=== PATIENT | female | born 1960 | race Caucasian/White ===

== ENCOUNTER 2021-05-31 18:17 | Emergency (ER) | payer OTHER ==
[2021-05-31 19:45] LABS: Absolute Lymphocytes (CBC) 1.5 K/uL (0.7-4.9); Basophils % 0.5 % (0-1.3); Hematocrit 41.6 % (36.0-45.0); Lymphocytes % 22.6 % (15.3-44.8); MPV 8.6 fL (7.6-11.3); RBC Red Blood Cell Count 4.26 M/uL (3.86-4.86)
[2021-05-31 19:53] LABS: ALT/SGPT 50 U/L (12-78); AST/SGOT 50 U/L (15-37); Albumin 3.7 g/dL (3.4-5.0); Alkaline Phosphatase 99 U/L (45-117); BUN Blood Urea Nitrogen 5 mg/dL (7-18); Bicarbonate 24 mmol/L (21-32); Bilirubin Direct 0.2 mg/dL (0-0.2); Bilirubin Total 0.7 mg/dL (0.2-1.0); Glucose Level 106 mg/dL (74-106); Lipase 189 U/L (73-393); Potassium 3.2 mmol/L (3.5-5.1); Protein, Total 7.8 g/dL (6.4-8.2); Sodium Level 136 mmol/L (136-145)
--- NOTE | 2021-05-31 20:09 | EDPHYS ---
Physician Documentation [facility] Name: Roseanne Ruby Age: 61 yrs Sex: Female : 1960 Arrival Date: 05/31/2021 Time: 18:18 Bed 18 Private MD: ED Physician Kemal Penny HPI: 05/31 20:03 This 61 yrs old Female presents to ER via EMS with complaints of abdominal jr8 pain. 20:03 The patient presents with abdominal pain that is diffuse. Onset: The symptoms/episode jr8 began/occurred acutely, today. The symptoms do not radiate. Associated signs and symptoms: Pertinent positives: nausea and vomiting. The symptoms are described as crampy. Modifying factors: The symptoms are alleviated by nothing, the symptoms are aggravated by nothing. Severity of pain: At its worst the pain was mild in the emergency department the pain is unchanged. The patient has experienced a previous episode. The patient has not recently seen a physician. This is a 61-year-old female patient that arrived emergency room with complaints of abdominal pain and nausea vomiting. Stated that she was at [facility] a week or so ago with similar complaints. Stated that she feels that someone had poisoned her drink at that time and then went into talking about food poisoning at [employer]. Patient stated that she ate [employer] again and feels the same way.. Historical: - Allergies: 18:33 No Known Allergies; ch5 - Home Meds: 18:33 None [Active]; ch5 - PMHx: 18:33 None; ch5 - PSHx: 18:33 None; ch5 - Immunization history:: Adult Immunizations unknown, Client reports receiving the 2nd dose of the Covid vaccine. - Social history:: Smoking status: Patient reports the use of cigarette tobacco products, smokes one-half pack cigarettes per day, Patient uses alcohol, occasionally. Patient/guardian denies using street drugs. ROS: 20:03 Eyes: Negative for injury, pain, redness, and discharge, ENT: Negative for injury, jr8 pain, and discharge, Neck: Negative for injury, pain, and swelling, Cardiovascular: Negative for chest pain, palpitations, and edema, Respiratory: Negative for shortness of breath, cough, wheezing, and pleuritic chest pain, Back: Negative for injury and pain, MS/Extremity: Negative for injury and deformity, Skin: Negative for injury, rash, and discoloration, Neuro: Negative for headache, weakness, numbness, tingling, and seizure. 20:03 Abdomen/GI: Positive for abdominal pain, nausea and vomiting, Negative for diarrhea. Exam: 20:03 Constitutional: This is a well developed, well nourished patient who is awake, alert, jr8 and in no acute distress. Eyes: Pupils equal round and reactive to light, extra-ocular motions intact. Lids and lashes normal. Conjunctiva and sclera are non-icteric and not injected. Cornea within normal limits. Periorbital areas with no swelling, redness, or edema. ENT: Nares patent. No nasal discharge, no septal abnormalities noted. Tympanic membranes are normal and external auditory canals are clear. Oropharynx with no redness, swelling, or masses, exudates, or evidence of obstruction, uvula midline. Mucous membranes moist. Neck: Trachea midline, no thyromegaly or masses palpated, and no cervical lymphadenopathy. Supple, full range of motion without nuchal rigidity, or vertebral point tenderness. No Meningismus. Cardiovascular: Regular rate and rhythm with a normal S1 and S2. No gallops, murmurs, or rubs. Normal PMI, no JVD. No pulse deficits. Respiratory: Lungs have equal breath sounds bilaterally, clear to auscultation and percussion. No rales, rhonchi or wheezes noted. No increased work of breathing, no retractions or nasal flaring. Abdomen/GI: Soft, non-tender, with normal bowel sounds. No distension or tympany. No guarding or rebound. No evidence of tenderness throughout. Back: No spinal tenderness. No costovertebral tenderness. Full range of motion. Skin: Warm, dry with normal turgor. Normal color with no rashes, no lesions, and no evidence of cellulitis. MS/ Extremity: Pulses equal, no cyanosis. Neurovascular intact. Full, normal range of motion. Neuro: Awake and alert, GCS 15, oriented to person, place, time, and situation. Cranial nerves II-XII grossly intact. Motor strength 5/5 in all extremities. Sensory grossly intact. Vital Signs: 18:30 BP 146 / 86; Pulse 67; Resp 22; Temp 97.8(TE); Pulse Ox 100% ; Weight 62.14 kg; Height ch5 5 ft. 7 in. (170.18 cm); Pain 9/10; 20:28 BP 113 / 77 LA Sitting (auto/reg); Pulse 64; Resp 15 S; Temp 98.9(O); Pulse Ox 96% on sj1 R/A; Pain 0/10; 18:30 Body Mass Index 21.46 (62.14 kg, 170.18 cm) [facility] MDM: 18:28 Patient medically screened. [facility] 20:08 Data reviewed: vital signs, nurses notes, lab test result(s), and as a result, I will jr8 discharge patient. Data interpreted: Pulse oximetry: on room air is 100 %. Interpretation: normal. Counseling: I had a detailed discussion with the patient and/or guardian regarding: the historical points, exam findings, and any diagnostic results supporting the discharge/admit diagnosis, lab results, the need for outpatient follow up, a family practitioner, to return to the emergency department if symptoms worsen or persist or if there are any questions or concerns that arise at home. Special discussion: Based on the patient's Hx, exam, and Dx evaluation, there is no indication for emergent surgery or inpatient Tx. It is understood by the patient/guardian that if the Sx's persist or worsen they need to return immediately for re-evaluation. 05/31 18:46 Order name: Basic Metabolic Panel; Complete Time: 20:05 8 05/31 18:46 Order name: CBC with Diff; Complete Time: 20:05 8 05/31 18:46 Order name: Hepatic Function; Complete Time: 20:05 [facility] 05/31 18:46 Order name: Lipase; Complete Time: 20:05 8 05/31 18:46 Order name: IV Saline Lock; Complete Time: 19:52 8 05/31 18:46 Order name: Labs collected and sent; Complete Time: 19:52 8 Administered Medications: 20:28 Drug: Potassium Chloride 40 mEq Route: PO; sj1 20:28 Follow up: Response: Medication administered at discharge. 1 Point of Care Testing: Ranges: Critical Glucose Levels:Adult <50 mg/dl or >400 mg/dl <40 mg/dl or >180 mg/dl Disposition: 23:48 Co-signature as Attending Physician, Kemal Penny MD I agree with the assessment and kdr plan of care. Disposition Summary: 05/31/21 20:09 Discharge Ordered Location: Home jr8 Problem: new jr8 Symptoms: have improved jr8 Condition: Stable jr8 Diagnosis - Abdominal pain, Generalized jr8 Followup: jr8 - With: Private Physician - When: 2 - 3 days - Reason: Recheck today's complaints, Continuance of care, Re-evaluation by your physician Discharge Instructions: - Discharge Summary Sheet jr8 - Abdominal Pain, Adult jr8 Forms: - Medication Reconciliation Form jr8 - Thank You Letter jr8 - Antibiotic Education jr8 - Prescription Opioid Use jr8 Signatures: Dispatcher [employer] EDMS Kemal Penny MD MD kdr Roszak, Josh, PA PA jr8 Yamil Lyon RN RN ch5 Amita Wolf RN RN sj1
--- NOTE | 2021-05-31 20:09 | ER ---
Nurse's Notes [facility] Name: Roseanne Ruby Age: 61 yrs Sex: Female : 1960 Arrival Date: 05/31/2021 Time: 18:18 Bed 18 Private MD: Diagnosis: Abdominal pain, Generalized Presentation: 05/31 18:30 Chief complaint: EMS states: Multiple complaints. main complaint is ABD pain. Was seen ch5 in [place] ED twice last week. Complaint of seen "[place]" . Coronavirus screen: Vaccine status: Patient reports receiving the 2nd dose of the covid vaccine. Client denies travel out of the [place] in the last 14 days. Ebola Screen: Patient negative for fever greater than or equal to 101.5 degrees Fahrenheit, and additional compatible Ebola Virus Disease symptoms Patient denies exposure to infectious person. Patient denies travel to an Ebola-affected area in the 21 days before illness onset. Initial Sepsis Screen: Does the patient meet any 2 criteria? No. Patient's initial sepsis screen is negative. Does the patient have a suspected source of infection? No. Patient's initial sepsis screen is negative. Risk Assessment: Do you want to hurt yourself or someone else? Patient reports no desire to harm self or others. Onset of symptoms is unknown. 18:30 Method Of Arrival: EMS: [place] [id number] 18:30 Acuity: FLORY 3 5 Triage Assessment: 18:33 General: Appears unkempt, Behavior is Pt unable to stay on one conversation. . Pain: 5 Complains of pain in abdomen Pain currently is 9 out of 10 on a pain scale. Historical: - Allergies: 18:33 No Known Allergies; 5 - Home Meds: 18:33 None [Active]; ch5 - PMHx: 18:33 None; ch5 - PSHx: 18:33 None; 5 - Immunization history:: Adult Immunizations unknown, Client reports receiving the 2nd dose of the Covid vaccine. - Social history:: Smoking status: Patient reports the use of cigarette tobacco products, smokes one-half pack cigarettes per day, Patient uses alcohol, occasionally. Patient/guardian denies using street drugs. Screenin:36 Abuse screen: Denies threats or abuse. Denies injuries from another. Nutritional 5 screening: No deficits noted. Tuberculosis screening: No symptoms or risk factors identified. Fall Risk None identified. Assessment: 18:36 Reassessment: No changes from previously documented assessment. General: Behavior is ch5 cooperative. GI: Reports lower abdominal pain, upper abdominal pain. 20:30 Reassessment: pt did not express any SI/HI thoughts. C/o Abd pain. General: Appears in sj1 no apparent distress. unkempt. Pain: Denies pain. Neuro: No deficits noted. Cardiovascular: No deficits noted. Respiratory: No deficits noted. : No deficits noted. EENT: No deficits noted. Derm: No deficits noted. Musculoskeletal: No deficits noted. Psych: 20:29 [place] Suicide Severity Screening: In the past month, have you wished you were sj1 or wished you could go to sleep and not wake up? Patient responds "No." "In the past month, have you actually had any thoughts of killing yourself?" Patient responds "no." "In your lifetime, have you ever done anything, started to do anything, or prepared to do anything to end your life?" Patient responds "no.". Subjective:. Objective: Patient is cooperative, Speech is rambling, Affect is appropriate. Interventions: blood collected. Safety Checks: Vital Signs: 18:30 BP 146 / 86; Pulse 67; Resp 22; Temp 97.8(TE); Pulse Ox 100% ; Weight 62.14 kg; Height ch5 5 ft. 7 in. (170.18 cm); Pain 9/10; 20:28 BP 113 / 77 LA Sitting (auto/reg); Pulse 64; Resp 15 S; Temp 98.9(O); Pulse Ox 96% on sj1 R/A; Pain 0/10; 18:30 Body Mass Index 21.46 (62.14 kg, 170.18 cm) [facility] ED Course: 18:18 Patient arrived in ED. 5 18:27 Bunny Trotter PA is PHCP. jr8 18:27 Kemal Penny MD is Attending Physician. jr8 18:29 Yamil Lyon RN is Primary Nurse. 5 18:33 Triage completed. 5 18:33 Arm band placed on right wrist. 5 18:36 Bed in low position. Call light in reach. Side rails up X2. 5 18:36 No provider procedures requiring assistance completed. ch5 20:28 IV discontinued, intact, bleeding controlled, No redness/swelling at site. sj1 Administered Medications: 20:28 Drug: Potassium Chloride 40 mEq Route: PO; sj1 20:28 Follow up: Response: Medication administered at discharge. 1 Point of Care Testing: Ranges: Outcome: 20:09 Discharge ordered by . louis 20:28 Discharged to home ambulatory. sj1 20:28 Condition: stable 20:28 Discharge instructions given to patient, Instructed on discharge instructions, follow up and referral plans. Demonstrated understanding of instructions, follow-up care. 20:31 Patient left the ED. 1 Signatures: Bunny Trotter PA PA jr8 Yamil Lyon RN RN 5 Amita Wolf RN RN 1
[2021-05-31 20:36] VITALS: BP 113/77; TEMP 98.9; O2SAT 96
[2021-05-31] MEDS ORDERED: POTASSIUM CL SA 10 MEQ TAB PO ONE (20:44)
== END 2021-05-31 20:31 | disposition home or self-care (01) ==
LOC: ER 18:17
DX: R10.84 Generalized abdominal pain (principal); F17.210 Nicotine dependence, cigarettes, uncomplicated
CPT/HCPCS: 36415; 80048; 80076; 83690; 85025; 99283

== ENCOUNTER 2021-06-03 15:47 | Emergency (ER) | payer OTHER ==
--- NOTE | 2021-06-03 16:37 | RAD REPORT ---
EXAM DESCRIPTION: CT - Head Brain Wo Cont - 06/03/2021 4:24 pm CLINICAL HISTORY: AMS COMPARISON: No comparisons TECHNIQUE: Axial 5 mm thick images of the head were obtained without IV contrast. All CT scans are performed using dose optimization technique as appropriate and may include automated exposure control or mA/KV adjustment according to patient size. FINDINGS: No intracranial hemorrhage, mass, edema or shift of mid-line structures. No acute infarcti on changes seen. No cortical edema or sulcal effacement. Atrophy changes are minimal. No significant chronic ischemic changes seen. Arterial tree calcifications are present. Ventricles are normal. Mastoid air cells are clear. Small air-fluid level present in the right maxillary sinus. Minimal muco baltazar thickening seen on the left maxillary sinus. Partially collapsed, partially calcified nonfunction ing right lobe noted. No acute bony findings. IMPRESSION: Negative non-contrast CT head examination for acute finding.
[2021-06-03 16:52] LABS: Absolute Lymphocytes (CBC) 1.9 K/uL (0.7-4.9); Basophils % 0.5 % (0-1.3); Hematocrit 43.5 % (36.0-45.0); Lymphocytes % 27.4 % (15.3-44.8); MPV 8.6 fL (7.6-11.3); RBC Red Blood Cell Count 4.41 M/uL (3.86-4.86)
[2021-06-03 16:53] LABS: Protime INR 0.96
[2021-06-03 17:11] LABS: ALT/SGPT 46 U/L (12-78); AST/SGOT 65 U/L (15-37); Albumin 3.9 g/dL (3.4-5.0); Alkaline Phosphatase 127 U/L (45-117); BUN Blood Urea Nitrogen 11 mg/dL (7-18); Bicarbonate 27 mmol/L (21-32); Bilirubin Direct 0.2 mg/dL (0-0.2); Bilirubin Total 0.8 mg/dL (0.2-1.0); Glucose Level 104 mg/dL (74-106); NT PRO-BNP 370 pg/mL (<125); Potassium 3.6 mmol/L (3.5-5.1); Protein, Total 8.1 g/dL (6.4-8.2); Sodium Level 141 mmol/L (136-145); Troponin (Emerg Dept Use Only) < 0.02 ng/mL (0.0-0.045)
--- NOTE | 2021-06-03 17:25 | RAD REPORT ---
EXAM DESCRIPTION: RAD - Chest Single View - 06/03/2021 4:52 pm CLINICAL HISTORY: AMS COMPARISON: None TECHNIQUE: AP portable chest image was obtained 06/03/2021 4:52 pm . FINDINGS: No focal mass or consolidation. Interstitial markings are prominent partly due to techniqu e. Chronic interstitial lung disease is suspected. A mild interstitial edema or infiltrate cannot be excluded. Heart and vasculature are normal. No measurable pleural effusion and no pneumothorax. No ac aicha bony abnormality seen. No acute aortic findings suspected. IMPRESSION: No acute cardiopulmonary process suspected. Prominent interstitial pattern is favored to be baseline. Interstitial edema or infiltrate cannot be excluded.
[2021-06-03 22:01] LABS: Urine Blood Negative (Negative); Urine Glucose Negative (Negative); Urine Protein Negative (Negative); Urine Specific Gravity >=1.030 (1.005-1.030)
[2021-06-03 22:22] LABS: Barbiturates NEGATIVE (NEGATIVE); Benzodiazepines NEGATIVE (NEGATIVE); Cocaine NEGATIVE (NEGATIVE); METHAMPHETAM NEGATIVE (NEGATIVE); Methadone NEGATIVE (NEGATIVE); Opiates NEGATIVE (NEGATIVE); Phencyclidine NEGATIVE (NEGATIVE); THC Cannibis NEGATIVE (NEGATIVE)
[2021-06-03 22:31] LABS: Urine Bacteria 20-50 /HPF (<20); Urine Coarse Granular Casts 0-5 /LPF (NONE SEEN); Urine Mucus 2+ /HPF (NONE SEEN); Urine RBC <5 /HPF (NONE SEEN)
--- NOTE | 2021-06-03 22:52 | EDPHYS ---
Physician Documentation [facility] Name: Roseanne Ruby Age: 61 yrs Sex: Female : 1960 Arrival Date: 06/03/2021 Time: 15:52 Bed 14 Private MD: ED Physician Reynaldo Dean HPI: 06/03 16:29 This 61 yrs old Female presents to ER via EMS with complaints of Altered pm1 Mental Status. 16:29 The patient presents with confusion, according to staff at [facility]. Onset: pm1 The symptoms/episode began/occurred just prior to arrival. Possible causes: unknown. Associated signs and symptoms: The patient has no apparent associated signs or symptoms. Patient's baseline: Neuro: alert and fully oriented, Motor: no deficits, Ambulation: walks without assistance, Speech: normal. The patient has not experienced similar symptoms in the past. The patient has been recently seen by a physician: with different complaint(s), and apparently was diagnosed with UTI, abdominal pain at [facility] 3 days ago. Patient was discharged home with antibiotics for UTI. Patient did not fill prescription. Historical: - Allergies: 16:12 "synthetic"; jd3 16:12 honey; jd3 - Home Meds: 16:12 None [Active]; jd3 - PMHx: 16:12 None; jd3 - PSHx: 16:12 None; jd3 - Immunization history:: Adult Immunizations unknown. - Social history:: Smoking status: Patient reports the use of cigarette tobacco products. ROS: 16:29 Constitutional: Negative for fever, chills, and weight loss, Cardiovascular: Negative pm1 for chest pain, palpitations, and edema, Respiratory: Negative for shortness of breath, cough, wheezing, and pleuritic chest pain, Abdomen/GI: Negative for abdominal pain, nausea, vomiting, diarrhea, and constipation, Back: Negative for injury and pain, MS/Extremity: Negative for injury and deformity, Skin: Negative for injury, rash, and discoloration, Neuro: Negative for headache, weakness, numbness, tingling, and seizure. 16:29 : Negative for injury, bleeding, discharge, and swelling. 16:29 All other systems are negative. Exam: 16:29 Constitutional: This is a well developed, well nourished patient who is awake, alert, pm1 and in no acute distress. Head/Face: Normocephalic, atraumatic. 16:29 Back: No spinal tenderness. No costovertebral tenderness. Full range of motion. Skin: Warm, dry with normal turgor. Normal color with no rashes, no lesions, and no evidence of cellulitis. MS/ Extremity: Pulses equal, no cyanosis. Neurovascular intact. Full, normal range of motion. 16:29 Eyes: Exam is negative for acute changes, Extraocular movements: no acute changes, Sclera: no acute changes, icterus, is not appreciated. 16:29 ENT: Exam is negative for acute changes, Mouth: Lips: normal, moist, Oral mucosa: normal, pink and intact, moist. 16:29 Cardiovascular: Exam negative for acute changes, Rate: normal, Rhythm: regular, Pulses: no pulse deficits are appreciated. 16:29 Respiratory: Exam negative for acute changes, respiratory distress, shortness of breath, Breath sounds: are clear throughout. 16:29 Abdomen/GI: Exam negative for acute changes, Inspection: abdomen appears normal, Palpation: abdomen is soft and non-tender, in all quadrants. 16:29 Neuro: Exam negative for acute changes, Orientation: is normal, Mentation: is normal, Motor: is normal, moves all fours. Vital Signs: 16:13 BP 114 / 67; Pulse 81; Resp 18 S; Temp 98.3(O); Pulse Ox 98% on R/A; Weight 107.5 kg jd3 (R); Height 5 ft. 7 in. (170.18 cm) (R); Pain 0/10; 17:31 BP 95 / 71; Pulse 75; Resp 17 S; Pulse Ox 97% on R/A; jd3 20:30 BP 101 / 74; Pulse 72; Resp 15; Temp 98(O); Pulse Ox 98% on R/A; Pain 0/10; bc5 23:40 BP 105 / 80; Pulse 75; Resp 16; Pulse Ox 100% on R/A; Pain 0/10; bc5 16:13 Body Mass Index 37.12 (107.50 kg, 170.18 cm) jd3 MDM: 16:02 Patient medically screened. pm1 22:50 Data reviewed: vital signs. Data interpreted: Pulse oximetry: on room air is 98 %. pm1 Interpretation: normal. Counseling: I had a detailed discussion with the patient and/or guardian regarding: the historical points, exam findings, and any diagnostic results supporting the discharge/admit diagnosis, lab results, radiology results, the need for outpatient follow up, to return to the emergency department if symptoms worsen or persist or if there are any questions or concerns that arise at home. 06/03 16:11 Order name: Basic Metabolic Panel pm1 06/03 16:11 Order name: CBC with Diff pm1 06/03 16:11 Order name: LFT's pm1 06/03 16:11 Order name: Magnesium; Complete Time: 17:19 pm1 06/03 16:11 Order name: NT PRO-BNP; Complete Time: 17:19 pm1 06/03 16:11 Order name: PT-INR; Complete Time: 16:58 pm1 06/03 16:11 Order name: Troponin (emerg Dept Use Only); Complete Time: 17:19 pm1 06/03 16:11 Order name: Urine Microscopic Only; Complete Time: 22:49 pm1 06/03 16:11 Order name: Basic Metabolic Panel; Complete Time: 17:19 EDMS 06/03 16:11 Order name: CBC with Automated Diff; Complete Time: 16:58 EDMS 06/03 16:11 Order name: Liver (Hepatic) Function; Complete Time: 17:19 EDMS 06/03 16:58 Order name: UDS; Complete Time: 22:30 pm1 06/03 22:00 Order name: Urine Dipstick-Ancillary; Complete Time: 22:20 EDMS 06/03 22:32 Order name: Urine Culture EDMS 06/03 16:11 Order name: CT Head Brain wo Cont; Complete Time: 16:58 pm1 06/03 16:11 Order name: XRAY Chest (1 view); Complete Time: 17:37 pm1 06/03 16:11 Order name: EKG; Complete Time: 16:12 pm1 06/03 16:11 Order name: Cardiac monitoring; Complete Time: 16:21 pm1 06/03 16:11 Order name: EKG - Nurse/Tech; Complete Time: 16:55 pm1 06/03 16:11 Order name: IV Saline Lock; Complete Time: 16:45 pm1 06/03 16:11 Order name: Labs collected and sent; Complete Time: 16:45 pm1 06/03 16:11 Order name: O2 Per Protocol; Complete Time: 16:21 pm1 06/03 16:11 Order name: O2 Sat Monitoring; Complete Time: 16:21 pm1 06/03 16:11 Order name: Urine Dipstick-Ancillary (obtain specimen); Complete Time: 22:02 pm1 Administered Medications: 23:04 CANCELLED (Physician Discretion): Rocephin (cefTRIAXone) 50 mg/kg IV at calculated rate pm1 once; Given slow IV push per pharmacy instructions 23:15 Drug: Rocephin (cefTRIAXone) 1 grams Route: IV; Rate: calculated rate; Site: right bc5 antecubital; 23:38 Follow up: IV Status: Completed infusion; IV Intake: 50ml bc5 Disposition: 06/04 16:22 Co-signature as Attending Physician, Reynaldo [place] MD I agree with the assessment and ese plan of care. Disposition Summary: 06/03/21 22:51 Discharge Ordered Location: Home pm1 Problem: new pm1 Symptoms: have improved pm1 Condition: Stable pm1 Diagnosis - UTI/ Urinary tract infection, site not specified pm1 Followup: pm1 - With: Emergency Department - When: As needed - Reason: Worsening of condition Followup: pm1 - With: Private Physician - When: 2 - 3 days - Reason: Recheck today's complaints, Continuance of care, Re-evaluation by your physician Discharge Instructions: - Discharge Summary Sheet pm1 - Urinary Tract Infection, Adult pm1 Forms: - Medication Reconciliation Form pm1 - Thank You Letter pm1 - Antibiotic Education pm1 - Prescription Opioid Use pm1 Prescriptions: - Bactrim DS 800-160 mg Oral Tablet - take 1 tablet by ORAL route every 12 hours for 10 days; 20 tablet; Refills: 0, pm1 Product Selection Permitted Signatures: Dispatcher [employer] Reynaldo Thompson MD MD cha Marinas, Patrick, NP [employer]ATIVE SERVICES MANAGER pm1 Shadi Kohli RN RN jd3 Corado, Bella, RN RN bc5 Corrections: (The following items were deleted from the chart) 06/03 16:13 16:12 Allergies: synthetics; jeferson jd3 16:13 16:12 PMHx: Unable to Obtain; [email or web address] jd3 16:13 16:12 PSHx: None; jd3 jd3 23:04 22:50 Rocephin (cefTRIAXone) 50 mg/kg IV at calculated rate once; Given slow IV push pm1 per pharmacy instructions ordered. pm1
--- NOTE | 2021-06-03 22:52 | ER ---
Nurse's Notes [facility] Name: Roseanne Ruby Age: 61 yrs Sex: Female : 1960 Arrival Date: 06/03/2021 Time: 15:52 Bed 14 Private MD: Diagnosis: UTI/ Urinary tract infection, site not specified Presentation: 06/03 16:07 Chief complaint: EMS states: "the pt was picked up at a local [facility]. pt reports being jd3 homeless. staff at the [facility] reporting the pt having AMS. the pt denies pain, but reports recent visit to a different hospital for an unknown reason.". Coronavirus screen: At this time, the client does not indicate any symptoms associated with coronavirus-19. Ebola Screen: Patient negative for fever greater than or equal to 101.5 degrees Fahrenheit, and additional compatible Ebola Virus Disease symptoms. Initial Sepsis Screen: Does the patient meet any 2 criteria? No. Patient's initial sepsis screen is negative. Does the patient have a suspected source of infection? No. Patient's initial sepsis screen is negative. Risk Assessment: Do you want to hurt yourself or someone else? Patient reports no desire to harm self or others. Onset of symptoms was June 03, 2021. 16:07 Method Of Arrival: EMS: [facility] jd3 16:07 Acuity: FLORY 3 jd3 Historical: - Allergies: 16:12 "synthetic"; jd3 16:12 honey; jd3 - Home Meds: 16:12 None [Active]; jd3 - PMHx: 16:12 None; jd3 - PSHx: 16:12 None; jd3 - Immunization history:: Adult Immunizations unknown. - Social history:: Smoking status: Patient reports the use of cigarette tobacco products. Screenin:21 Abuse screen: Denies threats or abuse. Nutritional screening: No deficits noted. jd3 Tuberculosis screening: No symptoms or risk factors identified. Fall Risk Ambulatory Aid- None/Bed Rest/Nurse Assist (0 pts). Gait- Normal/Bed Rest/Wheelchair (0 pts) Mental Status- Oriented to own ability (0 pts). Total Eckert Fall Scale indicates No Risk (0-24 pts). Assessment: 16:14 General: Appears in no apparent distress. comfortable, unkempt, Behavior is calm, jd3 cooperative, appropriate for age, Smells of cigarette smoke. Pain: Denies pain. Neuro: Level of Consciousness is awake, alert, obeys commands, Oriented to person, place, time. Cardiovascular: Denies chest pain, Capillary refill < 3 seconds Patient's skin is warm and dry. Respiratory: Airway is patent Respiratory effort is even, unlabored, Respiratory pattern is regular, symmetrical, Denies cough, shortness of breath. GI: No signs and/or symptoms were reported involving the gastrointestinal system. : No signs and/or symptoms were reported regarding the genitourinary system. EENT: No signs and/or symptoms were reported regarding the EENT system. Derm: Skin is intact, Skin is dry, Skin is normal, Skin temperature is warm. Musculoskeletal: Circulation, motion, and sensation intact. Range of motion:. 17:31 Reassessment: Patient appears in no apparent distress at this time. No changes from jd3 previously documented assessment. Patient and/or family updated on plan of care and expected duration. Pain level reassessed. Patient denies pain at this time. 18:42 Reassessment: Patient appears in no apparent distress at this time. No changes from jd3 previously documented assessment. Patient and/or family updated on plan of care and expected duration. Pain level reassessed. awaiting results. 20:30 Reassessment: Pt provided food and drink. bc5 Vital Signs: 16:13 BP 114 / 67; Pulse 81; Resp 18 S; Temp 98.3(O); Pulse Ox 98% on R/A; Weight 107.5 kg jd3 (R); Height 5 ft. 7 in. (170.18 cm) (R); Pain 0/10; 17:31 BP 95 / 71; Pulse 75; Resp 17 S; Pulse Ox 97% on R/A; jd3 20:30 BP 101 / 74; Pulse 72; Resp 15; Temp 98(O); Pulse Ox 98% on R/A; Pain 0/10; bc5 23:40 BP 105 / 80; Pulse 75; Resp 16; Pulse Ox 100% on R/A; Pain 0/10; bc5 16:13 Body Mass Index 37.12 (107.50 kg, 170.18 cm) jd3 ED Course: 15:52 Patient arrived in ED. am2 15:59 James Triana NP is PHCP. pm1 15:59 Reynaldo Dean MD is Attending Physician. pm1 16:07 Shadi Kohli, RN is Primary Nurse. jd3 16:11 Triage completed. jd3 16:14 Arm band placed on. jd3 16:21 Patient has correct armband on for positive identification. Bed in low position. Call jd3 light in reach. Side rails up X2. residential monitor on. Pulse ox on. NIBP on. 16:23 CT Head Brain wo Cont In Process Unspecified. EDMS 16:45 Inserted saline lock: 20 gauge in right antecubital area, using aseptic technique. jd3 Blood collected. 16:51 XRAY Chest (1 view) In Process Unspecified. EDMS 16:55 Basic Metabolic Panel Sent. 5 16:55 CBC with Diff Sent. 5 16:55 LFT's Sent. 5 16:56 Warm blanket given. 5 16:56 Magnesium Sent. 5 16:56 NT PRO-BNP Sent. 5 16:56 Troponin (emerg Dept Use Only) Sent. 5 23:39 No provider procedures requiring assistance completed. IV discontinued, intact, bc5 bleeding controlled, No redness/swelling at site. Pressure dressing applied. Administered Medications: 23:04 CANCELLED (Physician Discretion): Rocephin (cefTRIAXone) 50 mg/kg IV at calculated rate pm1 once; Given slow IV push per pharmacy instructions 23:15 Drug: Rocephin (cefTRIAXone) 1 grams Route: IV; Rate: calculated rate; Site: right bc5 antecubital; 23:38 Follow up: IV Status: Completed infusion; IV Intake: 50ml bc5 Intake: 23:38 IV: 50ml; Total: 50ml. bc5 Outcome: 22:51 Discharge ordered by MD. pm1 23:39 Discharged to home ambulatory. bc5 23:39 Condition: improved 23:39 Discharge instructions given to patient, Instructed on discharge instructions, follow up and referral plans. medication usage. 23:41 Patient left the ED. bc5 Signatures: Dispatcher [employer] EDMS James Triana, SKY RESIDENT INSPECTOR pm1 Juliet Clemente mh5 Gabbi Bearden am2 Shadi Kohli, RN RN d3 Tatiana Allred RN RN 5 Corrections: (The following items were deleted from the chart) 16:13 16:12 Allergies: synthetics; jd3 jd3 16:12 PMHx: Unable to Obtain; jd3 jd3 16:12 PSHx: None; jd3 jd3
[2021-06-03] MEDS ORDERED: CEFTRIAXONE 1000 MG/VIAL ONE (23:35)
[2021-06-03] MEDS ORDERED: NA CHLORIDE 0.9% 50 ML ONE (23:35)
[2021-06-03 23:50] VITALS: TEMP 98
[2021-06-03 23:51] VITALS: BP 105/80; O2SAT 100
--- NOTE | 2021-06-05 09:01 | EKG ---
Test Date: 2021-06-03 Test Time: 15:53:48 Corporate Ethics Officer: KISHA MEASUREMENT RESULTS: Intervals: Rate: 73 [place]: 114 QRSD: 100 QT: 442 QTc: 486 [place]: P: 78 [place]: 114 QRS: 75 T: 71 INTERPRETIVE STATEMENTS: Normal sinus rhythm Nonspecific ST abnormality Abnormal ECG No previous ECG available for comparison Electronically Signed On 06-05-21 08:57:36 CDT by Russell Amaya
== END 2021-06-03 23:41 | disposition home or self-care (01) ==
LOC: ER 15:47
DX: N39.0 Urinary tract infection, site not specified (principal); F17.210 Nicotine dependence, cigarettes, uncomplicated; Z91.018 Allergy to other foods
CPT/HCPCS: 36415; 70450; 71045; 80048; 80076; 80307; 81003; 81015; 83735; 83880; 84484; 85025; 85610; 87077; 87086; 87088; 87186; 93005; 96365; 99284